=== PATIENT | female | born 1940 | race Caucasian/White ===

== ENCOUNTER → 2021-07-01 | Outpatient (CLI) | payer MEDICARE, MEDICAID ==
[~2021-07-01] MED LIST: REGADENOSON 0.4 MG/5 ML DISP.SYRIN. IV ONE
--- NOTE | 2021-07-01 11:29 | CARD ---
MR#: [id number] Date of Study: 07/01/2021 Ordering Physician: EDGAR WOLF, Referring Physician: EDGAR WOLF, Tech: Martha Padgett, [facility] APPROVED REPORT EXAM: Two-dimensional and M-mode echocardiogram with Doppler and color Doppler. Other Information Quality : AverageHR: 66bpm INDICATION Pre-Op Murmur RISK FACTORS Hypertension Hyperlipidemia Diabetes 2D DIMENSIONS RVDd3.3 (2.9-3.5cm)Left Atrium(2D)3.3 (1.6-4.0cm) IVSd1.0 (0.7-1.1cm)Aortic Root(2D)3.3 (2.0-3.7cm) LVDd4.5 (3.9-5.9cm)LVOT Diameter2.1 (1.8-2.4cm) PWd0.9 (0.7-1.1cm)LVDs2.8 (2.5-4.0cm) FS (%) 37.2 %SV62.0 ml LVEF(%)67.3 (>50%) Aortic Valve AoV Peak Behzad.168.1cm/sAoV VTI37.1cm AO Peak GR.11.3mmHgLVOT Peak Behzad.88.3cm/s LVOT VTI 19.82cmAO Mean GR.6mmHg ALBINA (VMAX)1.60bm1GML (VTI)1.81cm2 Mitral Valve MV E Krvmpsgs49.2cm/sMV DECEL KQMV387gn MV A Mlhvnwdr058.7cm/sMV E Mean Gr.2mmHg MV KDP37vqY/A Ratio0.9 MVA (PHT)3.35cm2 TDI E/Lateral E'14.7E/Medial E'15.4 Pulmonary Valve PV Peak Carkctas85.7cm/sPV Peak Grad.4mmHg Tricuspid Valve TR P. Hbrafbvh395yd/sRAP YLENWBDS6nsDf TR Peak Gr.31ktGiUUPD00asFc Pulmonary Vein S1 Cwbwlyix80.4cm/sD2 Jggatwjs98.0cm/s PVa iitrqaeb080garo LEFT VENTRICLE The left ventricle is normal size. There is mild concentric left ventricular hypertrophy. The left ve ntricular systolic function is normal and the ejection fraction is within normal range. The Ejection Fraction is 55-60%. There is normal LV segmental wall motion. Tissue Doppler imaging reveals mild lef t ventricular diastolic dysfunction. RIGHT VENTRICLE The right ventricle is borderline dilated. There is normal right ventricular wall thickness. The righ t ventricular systolic function is normal. ATRIA The left atrium size is normal. The right atrium size is normal. The interatrial septum is intact wit h no evidence for an atrial septal defect or patent foramen ovale as noted on 2-D or Doppler imaging. AORTIC VALVE The aortic valve is calcified with restricted leaflet motion. Doppler and Color Flow revealed trace a ortic regurgitation. Calculated aortic valve area is 1.91 cm2 with maximum pressure gradient of 12 mm Hg and mean pressure gradient of 6 mmHg. MITRAL VALVE The mitral valve is normal in structure and function. There is no evidence of mitral valve prolapse. There is no mitral valve stenosis with a mean gradient of 2.2 mmHg. Doppler and Color-flow revealed t race mitral regurgitation. TRICUSPID VALVE The tricuspid valve is normal in structure and function. Doppler and Color Flow revealed trace to mil d tricuspid regurgitation with an estimated PAP of 45 mmHg. There is mild-moderate pulmonary hyperten masoud. There is no tricuspid valve stenosis. PULMONIC VALVE The pulmonic valve is not well visualized. Doppler and Color Flow revealed trace pulmonic valvular re gurgitation. There is no pulmonic valvular stenosis. GREAT VESSELS The aortic root is normal in size. The ascending aorta is mildly dilated measuring 3.48 cm. The IVC i s normal in size and collapses >50% with inspiration. PERICARDIAL EFFUSION There is no evidence of significant pericardial effusion. Critical Notification Critical Value: No <Conclusion> There is mild concentric left ventricular hypertrophy. The left ventricular systolic function is normal and the ejection fraction is within normal range. Th e Ejection Fraction is 55-60%. There is normal LV segmental wall motion. The aortic valve is calcified with restricted leaflet motion. Calculated aortic valve area is 1.91 cm 2 with maximum pressure gradient of 12 mmHg and mean pressure gradient of 6 mmHg. Doppler and Color Flow revealed trace to mild tricuspid regurgitation with an estimated PAP of 45 mmH g. There is mild-moderate pulmonary hypertension. The ascending aorta is mildly dilated measuring 3.48 cm. Signed by : Ed Davies, Electronically Approved : 07/01/2021 11:29:00
--- NOTE | 2021-07-02 16:21 | RAD ---
MR#: [id number] Date of Study: 07/01/2021 Ordering Physician: EDGAR WOLF, Referring Physician: JOSE GUADALUPE PATIÑO Tech: RT Marcelo Alvarado) (N) APPROVED REPORT Test Type: Pharmacological Stress Nurse/Tech: Aggie Ingram RN Test Indications: pre-op clearance Cardiac History: HTN Medications: See Electronic Medical Record Medical History: See Electronic Medical Record Resting ECG: SR Resting Heart Rate: 65 bpm Resting Blood Pressure: 163/60mmHg Pretest Chest Pain: None Nurse/Tech Notes LungsCTA, S1S2 Consent: The procedure was explained to the patient in lay terms. Informed consent was witnessed. David eout was entered into [employer]. History and Stress Test performed by RT Marcelo Alvarado) (N) Pharm. Details Pharmacologic stress testing was performed using 0.4mg per 5ml of regadenoson given intravenously ove r 7-10 seconds. Stress Symptoms No chest pain or symptoms. POST EXERCISE Reason for Termination: Infusion complete Max HR: 93 bpm Max Blood Pressure: 153/62mmHg Blood Pressure response to exercise: Normal blood pressure response during stress. Heart Rate response to exercise: normal response Chest Pain: No. Arrhythmia: No. ST Change: No. INTERPRETATION Stress EKG Conclusion: No evidence of stress induced EKG changes. Rest: Stress: Viability: Radiopharm.Tc99m CgussmbqpCn39q Sestamibi Xasi09bAz 33mCi Img Date 07/01/2021 07/01/2021 Inj-Img Mmjr79fmy. 60min. Rest Admin Site:IV - Left AntecubitalAdministrator:RT Marcelo Alvarado)(N) Stress Admin Site: IV - Left AntecubitalAdministrator: CINDY Longoria STRESS DATA End Diast. Vol.68.0mlAv. Heart Rate72.0bpm End Syst. Vol.5.0mlCO Index BSA0.0L/min Myocardial Obfl908.0gEject. Ltrxujeb33.0% Stress Rates Pk. Fill Rate2.62EDV/secLVtime Pk. Fill 180.12msec Pk. Empty Rate3.90ESV/secLVtime Pk. Akymp762.32msec 1/3 Pk. Fill1.67EDV/sec Stress Scores Regional WT0.00Summed WT0.00 Regional WM0.00Summed WM0.00 The rest and stress images show normal perfusion, normal contraction and thickening. LV Perf. Quant 17 Seg. SSS0.00 17 Seg. SRS0.00 17 Seg. SDS0.00 Stress Defect Extent (% LAD)0.00Rest Defect Extent (% LAD)0.00Rev. Defect Extent (% LAD)0.00 Stress Defect Extent (% LCX) 0.00Rest Defect Extent (% LCX)0.00Rev. Defect Extent (% LCX)0.00 Stress Defect Extent (% RCA)0.00Rest Defect Extent (% RCA)0.00Rev. Defect Extent (% RCA)0.00 Stress Defect Extent (% RED)0.00Rest Defect Extent (% RED)0.00Rev. Defect Extent (% RED)0.00 Conclusion 1. No evidence of EKG changes with stress testing. 2. Normal perfusion at stress/rest. 3. Low risk study. 4. EF > 60%. Signed by : Ed Davies, Electronically Approved : 07/02/2021 16:21:34
== END ==
LOC: ECHO 08:30
PROVIDERS: ATTEND Internal Medicine Cardiovascular Disease
DX: I08.2 Rheumatic disorders of both aortic and tricuspid valves (principal); I27.20 Pulmonary hypertension, unspecified; R01.1 Cardiac murmur, unspecified
CPT/HCPCS: 78452; 93017; 93306; A9500; J2785